=== PATIENT | male | born 1950 | race Caucasian/White ===

== ENCOUNTER → 2018-02-19 | Day surgery (SDC) | payer MEDICARE, OTHER ==
[2018-02-15 09:41] LABS: BASOPHILS # (AUTO) 0.1 (0.0-0.1); EOSINOPHILS # (AUTO) 0.5 (0.0-0.4); EOSINOPHILS % 6.6 % (0.0-6.0); HEMATOCRIT 43.1 % (38.2-49.6); HEMOGLOBIN 14.2 g/dL (14.0-18.0); LYMPHOCYTES # (AUTO) 1.4 (1.0-3.2); LYMPHOCYTES % 17.1 % (18.0-39.1); MEAN CORPUSCULAR HEMOGLOBIN 27.4 pg (28-32); MEAN CORPUSCULAR HGB CONC 32.9 g/dL (31-35); MEAN CORPUSCULAR VOLUME 83.2 fL (81-99); MONOCYTES # (AUTO) 0.9 (0.2-0.8); NEUTROPHILS # (AUTO) 5.1 (2.1-6.9); NEUTROPHILS % 63.9 % (38.7-80.0); PLATELET COUNT 229 x10e3/uL (140-360); RED BLOOD COUNT 5.18 x10e6/uL (4.3-5.7); RED CELL DISTRIBUTION WIDTH 14.6 % (11.7-14.4)
--- NOTE | 2018-02-15 11:09 | Diagnostic Imaging Report ---
PROCEDURE: Frontal and lateral views of the chest. COMPARISON: None. INDICATIONS: CARPAL TUNNEL SURGERY FINDINGS: Lines/tubes: None. Lungs: The lungs are well inflated. Bibasilar atelectasis especially in the right lower lobe. There is no evidence of pneumonia or pulmonary edema. Pleura: Trace right pleural effusion. No pneumothorax. Heart and mediastinum: Mild cardiomegaly. Mild enlargement pulmonary artery. Atherosclerotic calcifications in aorta. Bones: No acute bony abnormality. IMPRESSION: Bibasilar atelectasis with trace right pleural effusion. Mild cardiomegaly. Dictated by: Jose Kaye M.D. on 02/15/2018 at 11:09 Electronically approved by: Jose Kaye M.D. on 02/15/2018 at 11:09
[~2018-02-19] MED LIST: AMLODIPINE BESYL5 MG PO; ATORVASTATIN CA40 MG PO; CEFAZOLIN SOD 1 GM VIAL ONE; DESFLURANE 240 ML BTL INH ONE; DEXAMETHASONE SOD PHOS INJ 4 MG/ML VIAL ONE; FENTANYL CITRATE/PF 100MCG/2 ML INJ ONE; KETOROLAC TROMETHAMINE 30 MG/ML VIAL ONE; LIDOCAINE HCL 2% LOCAL INJ 5 ML SDV VIAL INJ ONE; LOSARTAN POTAS100 MG PO; METOPROLOL TART50 MG PO; MIDAZOLAM HCL 2 MG/2 ML VIAL ONE; NAPROXEN500 MG PO; NUCYNTA50 MG PO; ONDANSETRON HCL INJ 2 MG/ML VIAL ONE; PROPOFOL IV EMULSION 10 MG/ML 20 ML VIAL ONE; TERAZOSIN HCL5 MG PO; TRAZODONE HCL150 MG PO
--- OUTSIDE RECORDS SUMMARY | 2018-02-19 07:56 | XMS REPORT ---
Author [facility] Address Unknown Phone Unavailable Care Team Providers Care French Binding Folder Name Role Phone MONTEZ OSWALD Unavailable Unavailable Problems This patient has no known problems. Allergies, Adverse Reactions, Alerts This patient has no known allergies or adverse reactions. Medications This patient has no known medications. Results Test Description Test Time Test Comments Text Results Atomic Results Result Comments CHEST 2 VIEWS [place] [address] Patient Name: JUAN F LUCIANO MR #: [id number] : 1950 Age/Sex: 67/M Req # : [id number] Adm Physician: Ordered by: MONTEZ OSWALD MD Report #: [id number] Location: OR Room/Bed: Procedure: [id number] DX/CHEST 2 VIEWS Exam Date: 02/15/18 Exam Time: 0920 REPORT STATUS: Signed PROCEDURE: Frontal and lateral views of the chest. COMPARISON: None. INDICATIONS: CARPAL TUNNEL SURGERY FINDINGS: Lines/tubes: None. Lungs: The lungs are well inflated. Bibasilar atelectasis especially in the right lower lobe. There is no evidence of pneumonia or pulmonary edema. Pleura: Trace right pleural effusion. No pneumothorax. Heart and mediastinum: Mild cardiomegaly. Mild enlargement pulmonary artery. Atherosclerotic calcifications in aorta. Bones: No acute bony abnormality. IMPRESSION: Bibasilar atelectasis with trace right pleural effusion. Mild cardiomegaly. Dictated by: Luiz Kaye M.D. on 02/15/2018 at 11:09 Electronically approved by: Luiz Kaye M.D. on 02/15/2018 at 11:09 Dictated By: LUIZ KAYE MD [id number] COPY TO: MONTEZ OSWALD MD
--- NOTE | 2018-02-19 13:31 | Operative Report ---
DATE OF PROCEDURE: February 19, 2018 TELEPHONE SALES AGENT: Elmo Driscoll PA-C The patient was brought to the operating room for induction of anesthesia. Throughout this case, my PA's assistance was necessary for retraction of soft tissue and positioning of the extremity. This allows for efficient and technically successful execution of the operation and is considered medically necessary. PREOPERATIVE DIAGNOSIS: Left carpal tunnel syndrome. POSTOPERATIVE DIAGNOSIS: Left carpal tunnel syndrome. PROCEDURE: Left endoscopic carpal tunnel release. INDICATIONS: The patient is a 67-year-old gentleman who has clinic signs and symptoms consistent with left carpal tunnel syndrome. He has failed conservative management and would like to proceed with definitive intervention. The risks and benefits of a left endoscopic versus open carpal tunnel release have been explained. He states he understands and wishes to proceed. PROCEDURE IN DETAIL: The patient was brought to the operating room. He was placed under general anesthetic. Prophylactic antibiotics were given in the holding area. The upper extremity was prepped and draped in a sterile manner. A well-padded tourniquet was placed on the upper arm and inflated to 250 mmHg. An operative time out was performed. A 1-cm incision was made over the flexion crease of the wrist. The palmaris longus was retracted to the radial side of the wound. The flexor retinaculum was elevated and incised with a pair of sharp tenotomy scissors. An elevator was used to tease the tenosynovium off the undersurface of the transverse carpal ligament. Dilators were placed, and the hook of the hamate was palpated. The Micro[employer] endoscope was then placed into the carpal tunnel. The undersurface of the ligament was cleanly visualized without evidence of soft tissue interposition. The knife was deployed, and the ligament was cut from distal to proximal. Full-thickness cut was noted. The proximal retinaculum was then incised under direct visualization using a pair of blunt Metzenbaum scissors. The wound was irrigated and closed with 2 interrupted 4-0 nylon stitches. A sterile bandage was applied, and the patient was extubated. The patient was transferred to the recovery room in stable condition. Blood loss was less than 5 mL, and at the end of the procedure needle and sponge counts were correct. Job#: [id number] REED
== END | disposition home or self-care (01) ==
LOC: OR 07:53
PROVIDERS: ATTEND Specialist
DX: G56.02 Carpal tunnel syndrome, left upper limb (principal); M54.9 Dorsalgia, unspecified; G47.33 Obstructive sleep apnea (adult) (pediatric); I10 Essential (primary) hypertension; I44.0 Atrioventricular block, first degree; R00.1 Bradycardia, unspecified; Z01.810 Encounter for preprocedural cardiovascular examination; Z01.812 Encounter for preprocedural laboratory examination; Z01.818 Encounter for other preprocedural examination; Z68.41 Body mass index [BMI] 40.0-44.9, adult; Z96.651 Presence of right artificial knee joint
CPT/HCPCS: 29848; 36415; 71046; 85025; 93005; J0690; J1100; J1885; J2001; J2250; J2405